=== PATIENT | male | born 2000 | race Caucasian/White ===

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

== ENCOUNTER 2022-09-10 18:21 | Emergency (ER) | payer OTHER ==
[2022-09-10 18:36] VITALS: BP 117/68; PULSE 71; RESP 18; TEMP 98.6; BMI 22.8
[2022-09-10] MEDS ORDERED: IBUPROFEN 600 MG TABLET (FP) PO ONE ×2 (19:42→19:43)
== END 2022-09-10 20:41 | disposition home or self-care (01) ==
LOC: JERFT 18:21 → JER 18:21 → JERFT 20:41
DX: S93.491A Sprain of other ligament of right ankle, initial encounter (principal); X50.1XXA Overexertion from prolonged static or awkward postures, initial encounter; Y93.51 Activity, roller skating (inline) and skateboarding; M25.571 Pain in right ankle and joints of right foot; R22.41 Localized swelling, mass and lump, right lower limb
CPT/HCPCS: 73610-TC-RT-FY; 99283-25